=== PATIENT | female | born 1985 | race American Indian/Alaskan Native ===

== ENCOUNTER 2017-10-26 16:19 | Emergency (ER) | payer OTHER ==
[~2017-10-26] VITALS: Ht 154.9 cm; Wt 59.0 kg
[2017-10-26] MEDS ORDERED: IBUPROFEN 600MG TABLET PO ONE (16:45)
[2017-10-26 20:00] VITALS: BP 106/66
== END 2017-10-26 20:41 | disposition home or self-care (01) ==
LOC: ER 16:19
DX: S29.012A Strain of muscle and tendon of back wall of thorax, initial encounter (principal); X50.3XXA Overexertion from repetitive movements, initial encounter; Y93.89 Activity, other specified; Y92.89 Other specified places as the place of occurrence of the external cause; Y99.8 Other external cause status
CPT/HCPCS: 81025; 99283

== ENCOUNTER 2018-03-08 19:28 | Emergency (ER) | payer MEDICAID, OTHER ==
[~2018-03-08] VITALS: Ht 154.9 cm; Wt 58.8 kg
[2018-03-09 00:26] VITALS: BP 120/80
== END 2018-03-09 00:25 | disposition home or self-care (01) ==
LOC: ER 19:28
DX: H10.9 Unspecified conjunctivitis (principal)
CPT/HCPCS: 99283